=== PATIENT | male | born 1975 | race Caucasian/White ===

== ENCOUNTER 2019-10-07 18:18 | Emergency (ER) | payer BC ==
[2019-10-07] MEDS ORDERED: ACETAMINOPHEN EXTRA STRENGTH 500 MG TABLET ONE (19:24)
[2019-10-07 19:58] LABS: RAPID GROUP A STREP NEGATIVE (NEGATIVE)
[2019-10-07] MEDS ORDERED: IBUPROFEN 800 MG TAB ONE (20:07)
== END 2019-10-07 20:43 | disposition home or self-care (01) ==
LOC: EDH 18:18
DX: J09.X2 Influenza due to identified novel influenza A virus with other respiratory manifestations (principal); R50.81 Fever presenting with conditions classified elsewhere; Z87.891 Personal history of nicotine dependence
CPT/HCPCS: 71045; 87804; 87880; 93005